=== PATIENT | female | born 1960 | race African-American/Black ===

== ENCOUNTER 2016-09-24 13:21 | Emergency (ER) | payer MEDICAID ==
[~2016-09-24] VITALS: Ht 152.4 cm; Wt 69.0 kg
[2016-09-24 16:45] VITALS: BP 142/95
== END 2016-09-24 19:06 | disposition home or self-care (01) ==
LOC: ER 18:42
DX: J06.9 Acute upper respiratory infection, unspecified (principal); J02.9 Acute pharyngitis, unspecified; H72.92 Unspecified perforation of tympanic membrane, left ear; I10 Essential (primary) hypertension; R59.0 Localized enlarged lymph nodes; Z85.3 Personal history of malignant neoplasm of breast; Z98.890 Other specified postprocedural states
CPT/HCPCS: 99283

== ENCOUNTER 2017-04-26 14:06 | Emergency (ER) | payer MEDICAID ==
[~2017-04-26] VITALS: Ht 152.4 cm; Wt 66.0 kg
[2017-04-26 17:59] VITALS: BP 140/90
== END 2017-04-26 18:00 | disposition home or self-care (01) ==
LOC: ER 14:45
DX: J06.9 Acute upper respiratory infection, unspecified (principal); I10 Essential (primary) hypertension
CPT/HCPCS: 99283

== ENCOUNTER 2018-11-08 23:09 | Emergency (ER) | payer MEDICAID ==
[~2018-11-08] VITALS: Ht 149.9 cm; Wt 65.2 kg
[2018-11-09 01:55] LABS: CLARITY URINE CLOUDY (CLEAR); COLOR URINE YELLOW (YELLOW); KETONES URINE TRACE (NEGATIVE); LEUKOCYTE ESTERASE URINE 1+ (NEGATIVE); NITRITE URINE NEGATIVE (NEGATIVE); OCCULT BLOOD URINE TRACE (NEGATIVE); PH URINE 5.5 (4.5-8.0); PROTEIN URINE NEGATIVE (NEGATIVE); SPECIFIC GRAVITY URINE 1.025 (1.005-1.030); UROBILINOGEN URINE 0.2 E.U./dL (0.2-1.0)
[2018-11-09] MEDS ORDERED: PHENAZOPYRIDINE HCL 100MG TABLET PO ONE (02:15)
[2018-11-09] MEDS ORDERED: IBUPROFEN 600MG TABLET PO ONE (02:15)
[2018-11-09] MEDS ORDERED: NITROFURANTOIN 100MG M/M CAPSULE PO ONE (02:15)
[2018-11-09 02:42] VITALS: BP 122/76
== END 2018-11-09 02:59 | disposition home or self-care (01) ==
LOC: ER 23:09
DX: N30.90 Cystitis, unspecified without hematuria (principal); I10 Essential (primary) hypertension; Z98.890 Other specified postprocedural states
CPT/HCPCS: 81003; 99284; Z7610

== ENCOUNTER 2019-04-18 10:56 | Emergency (ER) | payer MEDICAID ==
[~2019-04-18] VITALS: Ht 160 cm; Wt 60.1 kg
[2019-04-18] MEDS ORDERED: AMOXICILLIN/POTASSIUM CLAVULANATE 875/125MG TAB PO ONE (11:45)
[2019-04-18] MEDS ORDERED: ACETAMINOPHEN 325MG TABLET PO ONE (11:45)
[2019-04-18 11:52] VITALS: BP 132/78
== END 2019-04-18 11:52 | disposition home or self-care (01) ==
LOC: ER 10:56
DX: J06.9 Acute upper respiratory infection, unspecified (principal); H66.90 Otitis media, unspecified, unspecified ear; I10 Essential (primary) hypertension
CPT/HCPCS: 99283

== ENCOUNTER 2022-08-25 21:44 | Emergency (ER) | payer OTHER, MEDICAID ==
[~2022-08-25] VITALS: Ht 149.9 cm; Wt 62.5 kg
[2022-08-25] MEDS ORDERED: ACETAMINOPHEN 325MG TABLET PO ONE (22:00)
[2022-08-25] MEDS ORDERED: TOPUD PO (22:35)
[2022-08-25] MEDS ORDERED: AMOX1TAB16 PO (22:36)
[2022-08-25 23:11] VITALS: BP 107/88
== END 2022-08-25 23:31 | disposition home or self-care (01) ==
LOC: ER 21:44
DX: J02.9 Acute pharyngitis, unspecified (principal); I10 Essential (primary) hypertension
CPT/HCPCS: 87070; 87430; 99283

== ENCOUNTER 2023-04-05 13:28 | Emergency (ER) | payer OTHER ==
[~2023-04-05] VITALS: Ht 149.9 cm; Wt 63.5 kg
[~2023-04-05 13:28] MED LIST: AMOX1TAB16 PO; TOPUD PO
[2023-04-05 13:36] VITALS: O2SAT 98
[2023-04-05] MEDS ORDERED: AMLODIPINE (13:36)
[2023-04-05 14:45] VITALS: BP 146/87
[2023-04-05] MEDS ORDERED: HYDROCODONE/ACETAMINOPHEN 10/325MG TABLET PO ONE (14:45)
[2023-04-05] MEDS ORDERED: KETOROLAC 60MG/2ML VIAL IM ONE (14:45)
[2023-04-05] MEDS ORDERED: CYCL5TAB MT (16:04)
[2023-04-05] MEDS ORDERED: IBUP-2030 MT (16:04)
[2023-04-05 16:13] VITALS: PULSE 74; RESP 16; TEMP 98.7
== END 2023-04-05 16:14 | disposition home or self-care (01) ==
LOC: ER 13:28
DX: M54.9 Dorsalgia, unspecified (principal); I10 Essential (primary) hypertension; Z98.890 Other specified postprocedural states; V49.9XXA Car occupant (driver) (passenger) injured in unspecified traffic accident, initial encounter; Y93.89 Activity, other specified; Y92.89 Other specified places as the place of occurrence of the external cause; Y99.8 Other external cause status
CPT/HCPCS: 99284; 72070; 72100; 96372; J1885

== ENCOUNTER 2023-05-08 13:36 | Emergency (ER) | payer OTHER ==
[~2023-05-08] VITALS: Ht 152.4 cm; Wt 64.0 kg
[~2023-05-08 13:36] MED LIST changes: +AMLODIPINE; +CYCL5TAB MT; +IBUP-2030 MT
[2023-05-08 14:05] VITALS: BP 182/90; PULSE 81; RESP 16; TEMP 98.9; O2SAT 99
== END 2023-05-08 17:25 | disposition left against medical advice (07) ==
LOC: ER 13:36 → CANBEDREQ 16:27 → ER 17:25
DX: R20.0 Anesthesia of skin (principal); I10 Essential (primary) hypertension; Z98.890 Other specified postprocedural states
CPT/HCPCS: 99281

== ENCOUNTER 2023-09-26 21:15 | Emergency (ER) | payer OTHER ==
[~2023-09-26] VITALS: Ht 152.4 cm; Wt 63.0 kg
[2023-09-26 22:12] VITALS: O2SAT 97
[2023-09-26 23:45] VITALS: TEMP 102.9
[2023-09-26] MEDS: ACETAMINOPHEN 325MG TABLET PO ONE (23:45)
[2023-09-27] MEDS ORDERED: ALBU6.7H15 INH (00:03)
[2023-09-27] MEDS: KETOROLAC 30MG/ML VIAL IM ONE (00:15)
[2023-09-27] MEDS ORDERED: IBUP-2029 MT (01:19)
[2023-09-27] MEDS ORDERED: GUAI237L83 MT (01:19)
[2023-09-27 01:27] VITALS: BP 117/69; PULSE 91; RESP 14
== END 2023-09-27 01:33 | disposition home or self-care (01) ==
LOC: ER 21:15
DX: B34.9 Viral infection, unspecified (principal); E11.9 Type 2 diabetes mellitus without complications; I10 Essential (primary) hypertension; Z98.890 Other specified postprocedural states; Z79.899 Other long term (current) drug therapy; Z20.822 Contact with and (suspected) exposure to COVID-19
CPT/HCPCS: 99285; 71046; 87426; 87420; 87804 ×2; 96372; J1885

== ENCOUNTER 2024-03-18 18:36 | Emergency (ER) | payer MEDICARE, OTHER ==
[~2024-03-18] VITALS: Ht 149.9 cm; Wt 62.6 kg
[~2024-03-18 18:36] MED LIST changes: +ALBU6.7H15 INH; +GUAI237L83 MT; +IBUP-2029 MT
[2024-03-18 18:45] VITALS: O2SAT 97
[2024-03-18] MEDS: LIDOCAINE 5% PATCH TOP ONE (19:45)
[2024-03-18] MEDS: IBUPROFEN 600MG TABLET PO ONE (19:45)
[2024-03-18] MEDS: CYCLOBENZAPRINE 10MG TABLET PO ONE (19:45)
[2024-03-18] MEDS ORDERED: METH-653 MT (20:29)
[2024-03-18] MEDS ORDERED: LIDO700A30 TP (20:30)
[2024-03-18 20:45] VITALS: BP 119/73; PULSE 100; RESP 18; TEMP 36.83628; O2SAT 97
== END 2024-03-18 20:45 | disposition home or self-care (01) ==
LOC: ER 18:36
DX: M62.838 Other muscle spasm (principal); E11.9 Type 2 diabetes mellitus without complications; I10 Essential (primary) hypertension; Z98.890 Other specified postprocedural states; Z79.899 Other long term (current) drug therapy
CPT/HCPCS: 99284

== ENCOUNTER 2025-01-28 08:58 | Emergency (ER) | payer MEDICARE, OTHER ==
[~2025-01-28] VITALS: Ht 147.3 cm; Wt 67.0 kg
[~2025-01-28 08:58] MED LIST changes: -CYCL5TAB MT; +CYCL5TAB3 MT; +IBUP-1455 MT; -IBUP-2029 MT; +LIDO700A30 TP; +METH-653 MT
[2025-01-28 09:03] VITALS: O2SAT 100
[2025-01-28] MEDS ORDERED: HYDR-4001 MT (10:15)
[2025-01-28] MEDS ORDERED: LIDO700A30 TP (10:15)
[2025-01-28] MEDS ORDERED: NAPR-1486 MT (10:15)
[2025-01-28] MEDS: KETOROLAC 15MG/ML VIAL IM ONE (10:27)
[2025-01-28] MEDS: HYDROCODONE/ACETAMINOPHEN 5/325MG TABLET PO ONE (10:27)
[2025-01-28 10:46] VITALS: BP 141/76; PULSE 67; RESP 16; TEMP 36.7; O2SAT 98
== END 2025-01-28 10:50 | disposition home or self-care (01) ==
LOC: ER 08:58
DX: M54.40 Lumbago with sciatica, unspecified side (principal); I10 Essential (primary) hypertension; E11.9 Type 2 diabetes mellitus without complications; Z85.3 Personal history of malignant neoplasm of breast
CPT/HCPCS: 99283; 96372; J1885